=== PATIENT | male | born 1975 | race Caucasian/White ===

== ENCOUNTER 2021-07-29 10:43 | Emergency (ER) | payer OTHER, SELFPAY ==
[2021-07-29 10:54] VITALS: BP 119/78; PULSE 65; RESP 16; TEMP 36.2; O2SAT 98
--- NOTE | 2021-07-29 11:11 | ED.URI ---
HPI - URI/Sore Throat General Chief Complaint: Upper Respiratory Infection Stated Complaint: Sore Throat Time Seen by Provider: 07/29/21 11:00 Source: patient Mode of arrival: ambulatory Limitations: no limitations History of Present Illness HPI Narrative: Brian Gaines is a 46 yo male with no PMH other than tobacco abuse who [facility] with sore throat and swollen lymph nodes that started yesterday. No fever , no nausea vomiting , he has been vaccinated for Covid. Related Data Allergies Allergy/AdvReac Type Severity Reaction Status Date / Time No Known Allergies Allergy Verified 10/25/20 12:42 Review of Systems Review of Systems: CONSTITUTIONAL: Denies fever, chills, sweats. EYES: Denies visual changes, redness, discharge. ENT: Denies rhinorrhea, congestion, has sore throat, otalgia. Enlarged lymph nodes CARDIOVASCULAR: Denies chest pain, palpitations, edema. RESPIRATORY: Denies dyspnea, wheezing, cough GASTROINTESTINAL: Denies abdominal pain, nausea, vomiting, diarrhea. GENITOURINARY: Denies dysuria, hematuria, abnormal discharge SKIN: Denies rash or itching. NEUROLOGIC: Denies numbness, or focal weakness. PSYCHIATRIC: Denies anxiety or depression. PMFSH Past Medical History Medical History Decreased libido Family history of colon cancer Intractable migraine without aura and with status migrainosus Lipid screening Mild episode of recurrent major depressive disorder Family History Family History Mother Family history of malignant neoplasm of gastrointestinal tract, Onset Age: 49 Rectal cancer Father Diabetes mellitus Hypertension Sibling No problems noted. 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 There is no relevant family history pertinent to the presenting complaint. Exam Narrative: GENERAL: This is a well-nourished, well-developed patient, in mild distress. HEAD: normocephalic, atraumatic. EYES: Sclera clear/white. Vision is grossly intact. EARS: External ears normal, auditory canals clear and without drainage, TMs normal without perforation. Hearing grossly intact. NOSE: External nose normal without nasal discharge, nares without redness, no rhinorrhea. THROAT: Mucous membranes moist, posterior pharynx erythema with enlarged lymph node NECK: Neck supple, non-tender CARDIOVASCULAR: Regular rate and rhythm without murmurs, gallops, or rubs. RESPIRATORY: Clear to auscultation. Breath sounds equal bilaterally. No wheezes, rales, or rhonchi. GASTROINTESTINAL: Abdomen soft, SKIN: warm, intact with no suspicious lesions or rash, good texture and turgor. NEURO: awake, alert, and oriented to person, place and time. There were no obvious focal neurologic abnormalities. Steady gait EXTREMITIES: Normal range of motion. BACK: Nontender without deformity Course Course Emergency Course: Patient here as pharyngitis enlarged lymph nodes states that his throat is quite sore with swallowing, has history of strep throat, has had Covid vaccine Strep Test negative; sent for culture started on prednsione and amoxicillin- push fluids Vital Signs Vital signs: Vital Signs Temperature 97.2 F L 07/29/21 10:54 Pulse Rate 65 07/29/21 10:54 Respiratory Rate 16 07/29/21 10:54 Blood Pressure 119/78 07/29/21 10:54 Pulse Oximetry 98 07/29/21 10:54 Temperature 97.2 F L 07/29/21 10:54 Pulse Rate 65 07/29/21 10:54 Respiratory Rate 1
== END 2021-07-29 11:32 | disposition home or self-care (01) ==
PROVIDERS: Emergency Provider Nurse Practitioner
DX: I88.9 Nonspecific lymphadenitis, unspecified (principal); J02.9 Acute pharyngitis, unspecified
CPT/HCPCS: 87081; 87880; 99213; G0463